=== PATIENT | female | born 1955 | race Caucasian/White ===

== ENCOUNTER 2024-04-07 14:49 | Inpatient (IN) | payer MEDICARE, OTHER, SELFPAY ==
[2024-04-07] VITALS (37 sets, daily range): BP systolic 92–165; BP diastolic 54–77; PULSE 72–98; BMI 24.2; BMI 24.3
[2024-04-07 03:37] LABS: % Basophils 0.9 % (0-2); % Eosinophils 7.4 % (0-6); % Immature Granulocytes 0.6 % (0-0.5); % Lymphocytes 33.6 % (20.5-51.1); % Monocytes 7.8 % (1.7-9.3); % Neutrophils 49.7 % (42.2-75.2); Absolute Basophils 0.1 10^3/uL (0-0.2); Absolute Eosinophils 0.5 10^3/uL (0-0.7); Absolute Lymphocytes 2.2 10^3/uL (1.2-3.4); Absolute Monocytes 0.5 10^3/uL (0.1-0.6); Absolute Neutrophils 3.2 10^3/uL (1.4-6.5); Hematocrit 23.8 % (37.0-47.0); Mean Corp Hgb Conc. 33.6 g/dL (33.0-37.0); Mean Corpuscular Hgb 31.5 pg (27.0-31.0); Mean Corpuscular Volume 93.7 fL (81.0-99.0); Mean Platelet Volume 8.6 fL (7.4-10.4); Nucleated Red Blood Cells % 0 %; Platelet Count 508 10^3/uL (130-400); Red Blood Cell Count 2.54 10^6/uL (4.20-5.40); Red Cell Dist. Width 15.2 % (11.5-14.5); White Blood Cell Count 6.5 10^3/uL (4.8-10.8)
[2024-04-07 04:04] LABS: ALT (SGPT) 28 U/L (0-35); AST (SGOT) 37 U/L (14-36); Albumin 3.4 g/dl (3.5-5.0); Alkaline Phosphatase 89 U/L (38-126); Blood Urea Nitrogen 24 mg/dl (7-17); Calcium 8.7 mg/dl (8.4-10.2); Carbon Dioxide 20 mmol/L (22-30); Chloride 108 mmol/L (98-107); Estimated Creatinine Clearance 54 ml/min; Glucose 159 mg/dl (70-99); Potassium 3.7 mmol/L (3.5-5.1); Sodium 139 mmol/L (135-145); Total Bilirubin 0.5 mg/dl (0.2-1.3); Total Protein 5.6 g/dl (6.3-8.2); eGFR > 60.00
[2024-04-07] MEDS: ZOFRAN 4 MG IV (05:09)
[2024-04-07] MEDS: MORPHINE SULFATE 4 MG IV (05:09)
[2024-04-07] MEDS: NSS 1000 IV ×2 (05:15→06:34)
--- NOTE | 2024-04-07 06:03 | ED.GENMED ---
History of Present Illness
<Samanta Paz DO - Last Filed: 04/07/24 06:45>
General
Chief Complaint: Musculo-Skeletal Complaint
Source: patient and ambulance crew
Exam Limitations: none
Time Seen by Provider: 04/07/24 04:45
Nursing documentation reviewed up to this point in time: agreed with
History of Present Illness
History of Present Illness:
This is a 68-year-old woman who underwent left total hip replacement/anterior approach [address] Roach[address] Has been performing home physical therapy regimen via video and has been doing quite well. She took 1 oxycodone on postop day 1 which
resulted in nausea and lightheadedness. Since then she has not required narcotic pain medicine until she got up out of bed around 2 AM to help her dog and when she bent over she developed shooting left thigh pain. She laid down and took an
oxycodone but then noticed some swelling to her thigh. She also developed nausea and vomiting and near syncope when getting up for EMS.
She does admit to similar adverse reactions with previous doses of oxycodone. She denies back pain nor knee pain nor hip pain. Moderate pain mid anterior thigh that is worse with attempted movement.
She denies lower leg pain nor weakness nor numbness.
Past History
<Samanta Paz DO - Last Filed: 04/07/24 06:45>
Past History
ED Past Medical History: GERD
ED Past Surgical History: Gynecological (Hysterectomy) and Orthopedic (Left hip replacement March 2024)
Social History
Tobacco: Non-smoker
Alcohol: Occasional
Drug: None
Personal:
Living: with family
Family History
Family History: Other (Noncontributory)
Phy Exam
<Samanta Paz DO - Last Filed: 04/07/24 06:45>
Physical Exam
Physical Exam:
GENERAL: 68-year-old woman appears her stated age, awake and alert, moderately pale in appearance but overall appears in no acute distress. and daughter are accompanying.
EYE: pupils equal and reactive. anicteric
NECK: Supple, nontender, no meningismus, no significant adenopathy.
ENT: oral mucosa is moist. No rhinorrhea.
CARDIAC: Regular rate and rhythm. no murmur.
LUNGS: Clear breath sounds bilaterally, no acute respiratory distress, no wheezes/rales/rhonchi
ABDOMEN: Soft, nondistended, without focal tenderness
NEUROLOGICAL: Alert and oriented x3, no focal neuro deficits.
SKIN: Warm and dry, moderately pale in color, skin intact. No rash.
MUSCULOSKELETAL: There is moderate fullness to left thigh globally but thigh is soft, without tenseness and without ecchymosis nor erythema. There is mild tenderness about the anterior mid to distal anterior thigh. No tenderness about the knee.
There is no soft tissue swelling lower leg. Left anteromedial hip incision is dry and intact. There is full hip and knee range of motion with mild pain with range of motion but without hesitancy. No crepitus. No gross deformity. Peripheral
pulses are full and equal b/l.
PSYCH: Normal and appropriate interaction.
Course
<Samanta Paz, DO - Last Filed: 04/07/24 06:45>
Orders/Labs/Results
Orders:
Orders
04/07/24 03:19
EKG [Electrocardiogram (*1)] Urgent
Reason for Study: Syncope
EKG- Treatment ONCE
04/07/24 03:21
CBC/With Diff [Complete Blood Count/With Diff] Urgent
CMP [Comprehensive Metabolic Panel] Urgent
04/07/24 03:28
CR Hip - LT w/wo Pel 2-3 Vw* Urgent
Comment:
Reason For Exam: s/p hip replacement, pain and swelling
Include a pelvis x-ray?: Yes
04/07/24 05:04
Morphine Sulfate 4 mg IV NOW STA
Ondansetron Injectable [Zofran] 4 mg IV NOW STA
Femur, Left 2 View [CR Femur - Left Min 2 Vw] Urgent
Comment:
Reason For Exam: acute pain/swelling after bending
04/07/24 05:15
0.9% Sodium Chloride 1000 ml [Nss] 1,000 ml IV BOLUS
04/07/24 05:57
Orthostatic VS- Treatment ONCE
04/07/24 06:34
0.9% Sodium Chloride 1000 ml [Nss] 1,000 ml IV BOLUS
04/07/24 08:27
CBC/No Diff [Complete Blood Count/No Diff] Urgent
04/07/24 09:14
Type+Screen Urgent
04/07/24 09:15
Blood Bank Products [* Blood Bank Products] Urgent
Dr's Orders: Gabriel Jones DO
Blood Bank Products: *Packed RBC Leuko(PRBC's)
Quantity: 1
Transfuse Today: Yes
Reason: Anemia
04/07/24 09:31
Consult Orthopedic [ORTHOPEDIC CONSULT] Routine
Consulting Provider: Greg Bui
Was physician already notified: Yes
Abnormal Lab Results
04/07/24 04/07/24
03:21 08:27
WBC 11.6 H 10^3/uL
(4.8-10.8)
RBC 2.54 L 10^6/uL 2.15 L 10^6/uL
(4.20-5.40) (4.20-5.40)
Hgb 8.0 L g/dL 6.8 L* g/dL
(12.0-16.0) (12.0-16.0)
Hct 23.8 L % 20.5 L* %
(37.0-47.0) (37.0-47.0)
MCH 31.5 H pg 31.6 H pg
(27.0-31.0) (27.0-31.0)
RDW 15.2 H % 15.1 H %
(11.5-14.5) (11.5-14.5)
Plt Count 508 H 10^3/uL
(130-400)
Immature Gran % 0.6 H %
(0-0.5)
Eosinophils % 7.4 H %
(0-6)
Chloride 108 H mmol/L
(98-107)
Carbon Dioxide 20 L mmol/L
(22-30)
BUN 24 H mg/dl
(7-17)
Glucose 159 H mg/dl
(70-99)
AST 37 H U/L
(14-36)
Total Protein 5.6 L g/dl
(6.3-8.2)
Albumin 3.4 L g/dl
(3.5-5.0)
04/07/24 08:27
04/07/24 03:21
Vital Signs
Initial and Last Documented VS:
Initial Vital Signs
Temp Pulse Resp BP Pulse Ox
97.6 F 71 14 113/71 99
04/07/24 03:08 04/07/24 03:08 04/07/24 03:08 04/07/24 03:08 04/07/24 03:08
Last Documented Vital Signs
Temp Pulse Resp BP Pulse Ox
97.6 F 67 10 92/55 95
04/07/24 03:08 04/07/24 06:30 04/07/24 06:30 04/07/24 06:27 04/07/24 06:22
Cherrylt;Gabriel Jones, DO - Last Filed: 04/07/24 09:36>
Orders/Labs/Results
Orders:
Orders
04/07/24 03:19
EKG [Electrocardiogram (*1)] Urgent
Reason for Study: Syncope
EKG- Treatment ONCE
04/07/24 03:21
CBC/With Diff [Complete Blood Count/With Diff] Urgent
CMP [Comprehensive Metabolic Panel] Urgent
04/07/24 03:28
CR Hip - LT w/wo Pel 2-3 Vw* Urgent
Comment:
Reason For Exam: s/p hip replacement, pain and swelling
Include a pelvis x-ray?: Yes
04/07/24 05:04
Morphine Sulfate 4 mg IV NOW STA
Ondansetron Injectable [Zofran] 4 mg IV NOW STA
Femur, Left 2 View [CR Femur - Left Min 2 Vw] Urgent
Comment:
Reason For Exam: acute pain/swelling after bending
04/07/24 05:15
0.9% Sodium Chloride 1000 ml [Nss] 1,000 ml IV BOLUS
04/07/24 05:57
Orthostatic VS- Treatment ONCE
04/07/24 06:34
0.9% Sodium Chloride 1000 ml [Nss] 1,000 ml IV BOLUS
04/07/24 08:27
CBC/No Diff [Complete Blood Count/No Diff] Urgent
04/07/24 09:14
Type+Screen Urgent
04/07/24 09:15
Blood Bank Products [* Blood Bank Products] Urgent
Dr's Orders: Gabriel Jones DO
Blood Bank Products: *Packed RBC Leuko(PRBC's)
Quantity: 1
Transfuse Today: Yes
Reason: Anemia
04/07/24 09:31
Consult Orthopedic [ORTHOPEDIC CONSULT] Routine
Consulting Provider: Greg Bui
Was physician already notified: Yes
Abnormal Lab Results
04/07/24 04/07/24
03:21 08:27
WBC 11.6 H 10^3/uL
(4.8-10.8)
RBC 2.54 L 10^6/uL 2.15 L 10^6/uL
(4.20-5.40) (4.20-5.40)
Hgb 8.0 L g/dL 6.8 L* g/dL
(12.0-16.0) (12.0-16.0)
Hct 23.8 L % 20.5 L* %
(37.0-47.0) (37.0-47.0)
MCH 31.5 H pg 31.6 H pg
(27.0-31.0) (27.0-31.0)
RDW 15.2 H % 15.1 H %
(11.5-14.5) (11.5-14.5)
Plt Count 508 H 10^3/uL
(130-400)
Immature Gran % 0.6 H %
(0-0.5)
Eosinophils % 7.4 H %
(0-6)
Chloride 108 H mmol/L
(98-107)
Carbon Dioxide 20 L mmol/L
(22-30)
BUN 24 H mg/dl
(7-17)
Glucose 159 H mg/dl
(70-99)
AST 37 H U/L
(14-36)
Total Protein 5.6 L g/dl
(6.3-8.2)
Albumin 3.4 L g/dl
(3.5-5.0)
04/07/24 08:27
04/07/24 03:21
Vital Signs
Initial and Last Documented VS:
Initial Vital Signs
Temp Pulse Resp BP Pulse Ox
97.6 F 71 14 113/71 99
04/07/24 03:08 04/07/24 03:08 04/07/24 03:08 04/07/24 03:08 04/07/24 03:08
Last Documented Vital Signs
Temp Pulse Resp BP Pulse Ox
97.6 F 67 10 92/55 95
04/07/24 03:08 04/07/24 06:30 04/07/24 06:30 04/07/24 06:27 04/07/24 06:22
<Samanta Paz DO - Last Filed: 04/07/24 06:45>
MDM/Problems Addressed
Differential Diagnosis Includes:
Concern for occult hip dislocation, less likely femur fracture, other consideration is muscular strain, muscle tear.
There is nothing to suggest compartment syndrome nor infectious process.
Patient did suffer nausea then syncopal event prehospital that may have been adverse reaction to oxycodone as she reports similar reactions in the past. Other consideration is symptomatic anemia.
IV fluids infusing. Thus far hemodynamically stable.
Labs show moderate anemia with hemoglobin of 8, normal white blood cell count. I suspect anemia is postoperative in nature.
Chemistries are pending.
Left hip x-ray shows no evidence of fracture nor dislocation. Total hip replacement is intact. Will check femur x-ray, medicate for pain and nausea.
<Gabriel Jones, DO - Last Filed: 04/07/24 09:36>
*Critical Care Note
Total Time (30-74mins, 75-104mins- exclusive of procedures): Not Applicable
<Samanta Paz, DO - Last Filed: 04/07/24 06:45>
Update Note
Update Note:
Left hip and femur x-rays are unremarkable. There is an element of some soft tissue fluid inferior to the quadriceps noted on lateral femur film.
Patient is able to flex her hip and knee with only mild discomfort.
I suspect the soft tissue swelling anterior mid to distal thigh is dependent in nature, she continues to have no ecchymosis and no tenseness.
She does however continue to be significantly orthostatic with standing.
Will continue IV fluids and continue to observe. I suspect the orthostasis and nausea may be adverse reaction to opioids.
Will continue to observe for further edema of thigh but at this point it remains stable.
<Gabriel M. Jones, DO - Last Filed: 04/07/24 09:36>
Update Note
Update Note:
Left hip and femur x-rays are unremarkable. There is an element of some soft tissue fluid inferior to the quadriceps noted on lateral femur film.
Patient is able to flex her hip and knee with only mild discomfort.
I suspect the soft tissue swelling anterior mid to distal thigh is dependent in nature, she continues to have no ecchymosis and no tenseness.
She does however continue to be significantly orthostatic with standing.
Will continue IV fluids and continue to observe. I suspect the orthostasis and nausea may be adverse reaction to opioids.
Will continue to observe for further edema of thigh but at this point it remains stable.
Care of patient was initially signed out pending reassessment after IV fluids. Patient was still dizzy and lightheaded after being adequately hydrated. Given this, hemoglobin was repeated showing a drop to 6.7. Patient consented for blood
transfusion. Case discussed with orthopedics who will evaluate. Will admit
ED Attending Note
<Samanta Paz, DO - Last Filed: 04/07/24 06:45>
-
Portions of this chart may have been created with voice recognition software.� Occasional wrong word or��sound alike� substitutions may have occurred due to the inherent limitations of voice recognition software.
Discharge Plan
Departure
Patient Disposition: Admit
Date of Disposition: 04/07/24
Time of Disposition: 09:35
Admit to: Med/Surg
Presentation/result/management discussed w/ accepting MD/DO: Hospitalist
Condition: Good
Discharge Problem:
postoperative swelling anterior thigh, Orthostatic hypotension, Postoperative anemia due to acute blood loss
Prescriptions:
No Action
ascorbic acid (vitamin C) [Vitamin C] 500 MG tablet
500 mg PO DAILY
omeprazole 20 MG capsule,delayed release(DR/EC)
20 mg PO Q48H
sertraline 50 MG tablet
50 mg PO DAILY
[id number]-Jhunjwqtj serr [Osteo Bi-Flex (5-Loxin)] 1 EACH tablet
1 tab PO DAILY
multivitamin with folic acid [Tab-A-Rosibel] 1 TABLET tablet
1 tab PO DAILY
turmeric 400 MG capsule
1 cap PO DAILY
ijhttmgqywcwc-MA-uqrhrofipefko [Vicks DayQuil Cold-Flu Relief] 236 ML liquid
1 dose PO DAILYPRN PRN (Reason: cough)
Referrals:
Ruslan Camacho MD [Active] - Call in 1-3 days for appt
UNKNOWN - PT DOES,NOT KNOW [Family Provider] -
Interventions
Interventions:
*Risk Screen - Suicide Last Done: 04/07/24 03:08
*General Assessment Last Done: 04/07/24 03:08
*Neglect/Abuse Screening Last Done: 04/07/24 03:08
*ED COVID-19 Vaccine History Last Done: 04/07/24 03:08
ED-Musculoskeletal Assessment Last Done: 04/07/24 08:27
Discharge Date and Time
Print Language: TAMAZIGHT
[2024-04-07 08:35] LABS: Hematocrit 20.5 % (37.0-47.0); Mean Corp Hgb Conc. 33.2 g/dL (33.0-37.0); Mean Corpuscular Hgb 31.6 pg (27.0-31.0); Mean Corpuscular Volume 95.3 fL (81.0-99.0); Mean Platelet Volume 8.5 fL (7.4-10.4); Platelet Count 353 10^3/uL (130-400); Red Blood Cell Count 2.15 10^6/uL (4.20-5.40); Red Cell Dist. Width 15.1 % (11.5-14.5); White Blood Cell Count 11.6 10^3/uL (4.8-10.8)
[2024-04-07 08:53] LABS: Hemoglobin 6.8 g/dL (12.0-16.0)
--- NOTE | 2024-04-07 10:51 | CON.ORTHO ---
Consultation
-
Date/Time Consultation Requested: 915 AM 04/07/2024
Date/Time Consultation Performed: 1015 AM 04/07/24
Requesting Provider: Robert
Performing Provider: Ramya
Reason for Consultation: Left hip pain s/p left hip CYNTHIA
Consultation - Orthopedics
History
68-year-old female about 2 weeks status post left anterior total hip arthroplasty with Dr. De PALOMINO presented to the emergency department with complaints of left groin pain. In the emergency department she was found to have symptomatic anemia with
hemoglobin 6.7. She was admitted to the hospitalist service for transfusion. Orthopedics was consulted for further evaluation and treatment given her recent surgery. Patient is accompanied by her daughter. She reports that she had been doing
well postoperatively and had been progressing with physical therapy that was being performed virtually. She reports that yesterday she did progress to another phase of therapy that involves about twice the number of exercises. She reports that
last night she got out of bed and bent over when she had increasing pain in her left groin and proximal thigh. She also believes that she noted some increased swelling at that point following this episode. This prompted her presentation to the
emergency department. Currently patient reports very little to no pain at rest. She does note some increased swelling around the incision. She does report that she has an upcoming appointment to see Dr. De PALOMINO in the office on Tuesday. She does
report that she was dizzy when she tried to get out of bed in the emergency department. She denies any associated numbness or tingling.
Allergies / Home Medications
Past medical history: GERD
Past surgical history: Hysterectomy to be status post left anterior total hip arthroplasty
Social history: Non-smoker,
Family history: Not pertinent
Allergy/AdvReac Type Severity Reaction Status Date / Time
No Known Allergies Allergy Unverified 12/08/20 08:47
�Medication �Instructions �Recorded
ascorbic acid (vitamin C) 500 mg 500 mg PO DAILY 12/08/20
tablet (Vitamin C)
glucosamine ASf-L3-Switiepkt 1 tab PO DAILY 12/08/20
bernice 1,500 mg-400 unit-100 mg
tablet (Osteo Bi-Flex (5-Loxin))
multivitamin with folic acid 400 1 tab PO DAILY 12/08/20
mcg tablet (Tab-A-Rosibel)
omeprazole 20 mg capsule,delayed 20 mg PO Q48H 12/08/20
release
qpnfppzsdnlpk-ZM-btytmtloggweo 5 1 dose PO DAILYPRN PRN cough 12/08/20
mg-10 mg-325 mg/15 mL oral liquid
(Vicks DayQuil Cold and Flu Relief)
sertraline 50 mg tablet 50 mg PO DAILY 12/08/20
turmeric 400 mg capsule 1 cap PO DAILY 12/08/20
Vital Signs / Lab Results
Temp Pulse Resp BP Pulse Ox
97.6 F 90 19 120/72 98
04/07/24 03:08 04/07/24 10:30 04/07/24 10:30 04/07/24 10:00 04/07/24 09:00
04/07/24 08:27
04/07/24 03:21
10 point review systems reviewed and negative unless otherwise stated
General: Pleasant, no acute distress
Musculoskeletal left lower extremity
Surgical incision is intact without significant rebeca-incisional erythema, no ecchymotic staining noted
No rebeca-incisional tenderness to palpation
There is no reproducible pain with passive internal/external rotation of left hip
Patient is able to actively extend the knee
Patient is able to actively straight leg raise without pain
There is some mild to moderate swelling noted left thigh compared to contralateral extremity
There is no tenderness palpation over thigh soft tissues, musculature and leg are soft and compressible
There is no pain or tenderness palpation in the calf
Positive EHL, FHL, ankle dorsiflexion, plantarflexion
Brisk cap refill distally
Sensations grossly tact in all distributions distally
Diagnostic studies
X-rays of left hip were reviewed independently by myself. This reveals left hip prosthesis in appropriate position. Stem is in valgus. No evidence of periprosthetic lucency or gross subsidence of femoral component
Assessment / Plan
68-year-old female about 2 weeks status post left anterior total hip arthroplasty with symptomatic postoperative acute blood loss anemia in addition to some increasing left thigh and groin pain.
I had a long discussion with patient as well as her daughter at bedside. She is really not having any significant pain on my evaluation at this time. She has no pain with motion of her left hip. She does have some moderate swelling although I
would expect her to have some swelling postoperative setting this close to surgery. Certainly she could have sustained a soft tissue strain last night or this could be related to her relative increase in physical therapy exercises yesterday. Would
not recommend any further imaging study or intervention at this time particularly given her examination and would recommend close follow-up on outpatient basis with Dr. De PALOMINO which she already has scheduled for Tuesday. She has no calf pain and
given her increased pain and swelling with acute episode, would not have high index of suspicion of DVT. Extensor mechanism is intact on examination. certainly given her symptomatic anemia, would recommend transfusion given her hemoglobin less than
7. Again would recommend follow-up with Dr. TELLEZ on Tuesday. Please reach out with any questions or concerns. No further orthopedic intervention planned.
--- NOTE | 2024-04-07 13:58 | HPS.HSE ---
Family Physician
-
Family Physician: NOT KNOW UNKNOWN - PT DOES
Chief Complaint
-
left thigh pain
History of Present Illness
68-year-old female with PMH for GERD, about 2 weeks status post left anterior total hip arthroplasty with Dr. De PALOMINO presented to the emergency department with complaints of left groin pain, thigh pain after she had a wrong positing change last
night. patient stated worsening swelling to her left thigh since then. the pain and swelling is better today. denied any drainage or bleeding from the incision. patient denied BARRIOS, dizzy or syncopal episode. denied fever, chills, chest pain, sob.
denied abdomen,n,v,d. denied dysuria or hematuria.
upon arrival noted to have hgb of 6.7, transfusing with 2 units of blood. admitting for further management.
Medical History
Past Medical History
Past Medical History: Reports Other
Additional Past Medical History:
Chest pain
Past Surgical History: Reports Other
Additional Past Surgical History:
Left hip replacement
Hysterectomy
Social History
Tobacco: Non-smoker
Alcohol: None
Drug: None
Personal:
Living: With Family
Family History
Family History: Not pertinent
Allergies / Home Medications
Allergies reflects when Allergies were last updated in [employer].
Home Medications with original date entered in [employer]
Allergy/Medication List:
Allergies
Allergy/AdvReac Type Severity Reaction Status Date / Time
No Known Allergies Allergy Unverified 12/08/20 08:47
Home Medications
sertraline 50 mg tablet 50 mg PO DAILY 12/08/20
acetaminophen 500 mg tablet (Pain Reliever (acetaminophen)) 1,000 mg PO TID 04/07/24
aspirin 81 mg tablet,delayed release 81 mg PO BID 04/07/24
docusate sodium 100 mg capsule (Colace) 100 mg PO BID 04/07/24
esomeprazole magnesium 40 mg capsule,delayed release 40 mg PO DAILY 04/07/24
losartan 50 mg tablet 50 mg PO DAILY 04/07/24
oxycodone 5 mg tablet 5 mg PO Q4HPRN PRN moderate pain 04/07/24
Review of Systems
-
Constitutional: Reports No Symptoms
EENT: Reports No Symptoms
Respiratory: Reports No Symptoms
Cardiac: Reports No Symptoms
Abdomen/GI: Reports No Symptoms
: Reports No Symptoms
Musculoskeletal: Reports No Symptoms
Skin: Reports Other (Left thigh is swollen incision clean dry and intact, )
Neurological: Reports No Symptoms
Endocrine: Reports No Symptoms
Hematologic/Lymphatic: Reports No Symptoms
Psych: Reports No Symptoms
Physical Exam
Vital Signs
Vital Signs
Temp Pulse Resp BP Pulse Ox
98.1 F 81 16 116/62 95
04/07/24 12:38 04/07/24 13:30 04/07/24 13:30 04/07/24 13:20 04/07/24 13:30
Physical Exam
General: Well Developed, Well Nourished and No Apparent Distress
HEENT: NormoCephalic, Moist mucous membranes and Atraumatic
Respiratory: Clear
Cardiac: S1/S2 and Regular Rhythm; No Murmur or Rub
GI: Soft, Non Tender, Non Distended and Normal Bowel Sounds; No Organomegaly
Rectal: Deferred by Provider
Musculoskeletal: No Clubbing, No Cyanosis and No Edema
Skin: Rash and Other (Left thigh swollen, incision clean dry and intact)
Neuro: AO x 3 and Nonfocal/grossly intact
Psych: Calm
Laboratory Results
-
04/07/24 08:27
04/07/24 03:21
Laboratory Results
Total Bilirubin 0.5 mg/dl (0.2-1.3) 04/07/24 03:21
AST 37 U/L (14-36) H 04/07/24 03:21
ALT 28 U/L (0-35) 04/07/24 03:21
Alkaline Phosphatase 89 U/L (38-126) 04/07/24 03:21
Data Reviewed
-
Diagnostic Radiology: Report Reviewed by me
Lab Data: Labs Reviewed by me
Impression/Plan
-
#acute anemia likely hemodilutional/postop anemia
hgb 6.7
-I unit of PRBCs
-Monitor hemoglobin in a.m.
# Left thigh swelling/pain likely soft tissue strain
-orthopedic consulted
-Hip X ray with Left hip replacement is present. Prosthesis appears in satisfactory position. There is no radiographic evidence for associated fracture.Mild degenerative change of the superolateral right hip joint.
-femur x ray pending
-Patient evaluated by orthopedic, no acute intervention required at this time
#leukocytosis likely stress reaction
-wbc 11.6, afebrile
-ctm
# GERD
-PPI continued
# Hypertension
-Losartan continued
# Anxiety
-Sertraline continued
# DVT prophylaxis
-SCD
# CODE STATUS
-Full code
--- NOTE | 2024-04-07 15:39 | W.PN.UPDATE ---
Update Note
Progress Note Update
Patient seen/examined and discussed with MACHINE ENGINEER Virgilio, and I agree with her note.
Gen-AAOx3, NAD
HEENT-NC, AT, anicteric
Neck-supple
CV-reg, no M
Lungs-clear
Abd-soft, NT, ND
Ext-left thigh mild edema, incision clean and dry
Left thigh edema - mostly expected post-op edema after left hip replacement. Appreciate ortho input.
Normocytic anemia - unknown acuity or etiology. Initial Hgb was 8.0 at 3:21 am today. Initial BP was normal. She was administered 4mg IV morphine and subsequent BP was low (97/54) and 2L IVF bolus was administered. Subsequent Hgb was checked again
(for unclear reasons) and noted to be 6.8 at 8:27am. Strongly suspect hemodilution as the cause of the Hgb 'drop'. Doubt clinical bleeding, doubt hematoma in thigh with no known trauma.
Currently getting 1u PRBC. Recheck Hgb in am.
Anticipate discharge home tomorrow.
Discussed with patient, , ED attending, MACHINE ENGINEER.
[2024-04-07] MEDS: TYLENOL 1000 MG PO (19:34)
[2024-04-07] MEDS: COLACE 100 MG PO (19:34)
[2024-04-07] MEDS: ASPIR LOW (ENTERIC COATED) 81 MG PO (19:34)
[2024-04-08 06:00] VITALS: BMI 24.2
[2024-04-08 06:45] LABS: Hematocrit 23.1 % (37.0-47.0); Hemoglobin 7.9 g/dL (12.0-16.0); Mean Corp Hgb Conc. 34.2 g/dL (33.0-37.0); Mean Corpuscular Hgb 31.2 pg (27.0-31.0); Mean Corpuscular Volume 91.3 fL (81.0-99.0); Mean Platelet Volume 8.8 fL (7.4-10.4); Platelet Count 314 10^3/uL (130-400); Red Blood Cell Count 2.53 10^6/uL (4.20-5.40); Red Cell Dist. Width 16.6 % (11.5-14.5); White Blood Cell Count 6.5 10^3/uL (4.8-10.8)
[2024-04-08 07:00] VITALS: BP 132/73
[2024-04-08 07:26] LABS: Blood Urea Nitrogen 12 mg/dl (7-17); Calcium 9.1 mg/dl (8.4-10.2); Carbon Dioxide 29 mmol/L (22-30); Chloride 108 mmol/L (98-107); Estimated Creatinine Clearance 62 ml/min; Glucose 86 mg/dl (70-99); Potassium 4.7 mmol/L (3.5-5.1); Sodium 139 mmol/L (135-145); eGFR > 60.00
[2024-04-08] MEDS: COLACE 100 MG PO (08:15)
[2024-04-08] MEDS: ZOLOFT 50 MG PO (08:16)
[2024-04-08] MEDS: PROTONIX 40 MG PO (08:16)
[2024-04-08] MEDS: ASPIR LOW (ENTERIC COATED) 81 MG PO (08:16)
[2024-04-08] MEDS: TYLENOL 1000 MG PO (08:18)
[2024-04-08] MEDS: COZAAR 50 MG PO (09:57)
--- NOTE | 2024-04-08 12:15 | W.PN.HOSP.TC ---
Today's Communication/Plan
-
Discharge
Assessment / Plan
Assessment / Plan
Gen-AAOx3, NAD
HEENT-NC, AT, anicteric, clear oral mm
Neck-supple
CV-reg, no M, +S1/S2
Lungs-clear B/L
Abd-soft, NT, ND
Ext-left thigh edema improving
Musculoskeletal-no cyanosis, clubbing
Skin-warm and dry
Neuro-grossly non-focal
Psych-calm, cooperative
Post-op anemia - unknown baseline Hgb, but patient thinks it was around 10 or so. Hgb 7.9 today, transfused one unit yesterday. Resume iron on discharge. Encouraged her to follow-up with PCP in the office this week. Monitor hemoglobin.
Left thigh edema -post left hip replacement. Improving. Continue PT.
Full code
Discharge today. Outpatient follow-up.
Anticipated Discharge: Today
Subjective/Interval History
-
Date of Service: April 08, 2024
Patient seen/examined, feeling better, less thigh pain.
Objective Data
-
Labs:
Laboratory Results
04/08/24
05:48
WBC 6.5
Hgb 7.9 L
Hct 23.1 L
Plt Count 314
Sodium 139
Potassium 4.7 D
Chloride 108 H
Carbon Dioxide 29
BUN 12
Creatinine 0.7
Glucose 86
Calcium 9.1
Vital Signs:
Vital Signs
Temp Pulse Resp BP Pulse Ox
98.7 F 79 17 132/73 97
04/08/24 07:00 04/08/24 09:57 04/08/24 07:00 04/08/24 09:57 04/08/24 08:16
I&O
04/07/24 04/08/24 04/09/24
06:59 06:59 06:59
Intake Total 1330 / 1330
Balance 1330 / 1330
Review of Systems
-
History Source: Patient
All other systems: Reviewed and negative
--- NOTE | 2024-04-08 12:19 | W.DS.TRANS ---
DC Summary - General Science Teacher
-
Discharge Instructions:
Discharge Diagnosis/Procedures Postoperative anemia, left thigh swelling
Diet Low Fat,Low Cholesterol
Activity As tolerated
Driving Restrictions As prior to admission
Bathing Restrictions None
Instructions:
Stand-Alone Forms:
Changes to Home Medications: No
Discharge Medications:
DC Medications w/original date entered in [employer]
sertraline 50 mg tablet 50 mg PO DAILY Depression 12/08/20
acetaminophen 500 mg tablet (Pain Reliever (acetaminophen)) 1,000 mg PO TID Pain 04/07/24
aspirin 81 mg tablet,delayed release 81 mg PO BID Blood Clot Prevention/Tx 04/07/24
docusate sodium 100 mg capsule (Colace) 100 mg PO BID Constipation 04/07/24
esomeprazole magnesium 40 mg capsule,delayed release 40 mg PO DAILY Gastrointestinal Issue 04/07/24
losartan 50 mg tablet 50 mg PO DAILY Blood Pressure 04/07/24
oxycodone 5 mg tablet 5 mg PO Q4HPRN PRN moderate pain 04/07/24
polyethylene glycol 3350 17 gram oral powder packet (HealthyLax) 17 g PO DAILYPRN PRN constipation #0 ea 04/08/24
Home Medication Changes
Pending Results: No
--- NOTE | 2024-04-08 12:44 | CM ---
Reviewed chart, met with patient to obtain information for assessment. Patient also cleared for discharge. Daughter was at bedside. Patient stated that she lives with her spouse and son with her daughter who is a PT close by. She was independent
with her ADLs, personal care, bathing and dressing. She can normally drive and get to her own appointments and do her shopping. She has a cane, w/c and walker if she needs it.
Patient not currently driving however her children are available to take her where she needs.
She has never had VN services.
She has not been to a SNF
Patient has a prescription plan and uses, [facility] in [place] for all of her medications.
Her PCP is, not listed.
Patient wants to go home and her daughter confirmed she can transport her. IMM reviewed and signed.
Plan: Case management will continue to follow and assist with discharge planning. Home today.
--- NOTE | 2024-04-08 13:09 | PTCARENOTE ---
patient with left thigh edema, tolerating diet, sitting oob in chair, vss, for discharge to home today.
[2024-04-08 13:15] VITALS: BP 123/68
== END 2024-04-08 13:17 | disposition home or self-care (01) | DRG 812 ==
LOC: 3 WEST ACU 14:49
PROVIDERS: Registered Nurse; Student in an Organized Health Care Education/Training Program; ADMITTING PHYSICIAN Hospitalist; CONSULT PHYSICIAN Orthopaedic Surgery; EMERGENCY PHYSICIAN Emergency Medicine
PROC: 30233N1 Transfusion of Nonautologous Red Blood Cells into Peripheral Vein, Percutaneous Approach (ICD-10-PCS; 2024-04-07)
DX: D62 Acute posthemorrhagic anemia (principal); I10 Essential (primary) hypertension; K21.9 Gastro-esophageal reflux disease without esophagitis; F41.9 Anxiety disorder, unspecified; M79.652 Pain in left thigh; R10.32 Left lower quadrant pain; R60.0 Localized edema; Z98.890 Other specified postprocedural states; Z96.642 Presence of left artificial hip joint; Z79.82 Long term (current) use of aspirin; Z79.899 Other long term (current) drug therapy
CPT/HCPCS: 36430; 73502; 73552; 80048; 80053; 85025; 85027; 86850; 86900; 86901; 86920; 93005; 96374; 96375; 99285; P9016